=== PATIENT | male | born 1990 | race Two or more races ===

== ENCOUNTER 2016-12-30 04:07 | Emergency (ER) | payer SELFPAY ==
[~2016-12-30] VITALS: Ht 172.7 cm; Wt 77.1 kg
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
[2016-12-30] MEDS ORDERED: HYDROCODON-ACE1 EA15 ORAL (05:52)
[2016-12-30 06:05] VITALS: BP 134/82
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
== END 2016-12-30 06:06 | disposition home or self-care (01) ==
LOC: EMR 04:50
DX: S00.11XA Contusion of right eyelid and periocular area, initial encounter (principal); S02.2XXA Fracture of nasal bones, initial encounter for closed fracture; Y04.2XXA Assault by strike against or bumped into by another person, initial encounter; Y92.511 Restaurant or cafe as the place of occurrence of the external cause
CPT/HCPCS: 70486; 99284